=== PATIENT | female | born 1940 | race Caucasian/White ===

== ENCOUNTER → 2020-07-26 | Outpatient (CLI) | payer MEDICARE ==
[~2020-07-26] VITALS: Ht 149.9 cm; Wt 56.4 kg
[~2020-07-26] MED LIST: ASPIRIN E.C. 8181 MG PO; COMPLETE SENIOR1 TA1 PO; CRESTOR 10MG10 MG PO; HYZAAR 50-12.1 UDTAB PO; IMDUR 30MG30 MG/TAB PO; NEXIUM 20MG20 MG; NORVASC 5MG5 MG/TAB PO; VITAMIN D31000 I1 PO; ZETIA 10MG TAB10 MG PO
[2020-07-26 15:24] VITALS: BP 122/75; PULSE 80; TEMP 97.6
== END ==
LOC: EUO 14:53
DX: M81.0 Age-related osteoporosis without current pathological fracture (principal)
CPT/HCPCS: J3489

== ENCOUNTER → 2021-02-22 | Outpatient (CLI) | payer MEDICARE ==
[2021-02-22 11:06] LABS: BASO # 0.1 (0.0-0.2); BASO % 0.9 % (0.0-2.0); EOS # 0.4 (0.0-0.7); EOS % 3.8 % (0-4.0); GRAN # 5.7 (1.4-6.5); GRAN % 60.9 % (42.2-75.2); HEMATOCRIT 38.8 % (37.0-47.0); HEMOGLOBIN 12.3 g/dl (12.5-16.0); LYMPH # 2.2 (1.2-3.4); MEAN CELL VOLUME 90 fl (80.0-100.0); MEAN CORPUSCULAR HEMOGLOBIN 29 pg (27.0-31.0); MEAN CORPUSCULAR HGB CONC 32 g/dl (33.0-37.0); MEAN PLATELET VOLUME 8.4 fl (7.4-10.4); MONO # 1.1 (0.1-0.6); MONO % 11.2 % (1.7-9.3); PLATELET COUNT 384 K/mm3 (130-400); RED BLOOD COUNT 4.32 M/mm3 (4.10-5.30); REDCELL DISTRIBUTION WIDTH-CV 13.4 % (11.5-14.5)
[2021-02-22 11:29] LABS: ALBUMIN 4.6 gm/dL (3.5-5.0); BILIRUBIN,TOTAL 0.4 mg/dL (0.0-1.0); CREATININE, serum 0.59 (0.52-1.25); POTASSIUM 4.1 mmol/L (3.4-5.0); TOTAL PROTEIN 8.8 gm/dL (6.4-8.2)
[2021-02-22 11:59] LABS: C-REACTIVE PROTEIN 1.1 mg/dL (0.0-0.9)
== END ==
LOC: COL.LAB 10:36
PROVIDERS: Family Medicine
DX: R06.00 Dyspnea, unspecified (principal); I10 Essential (primary) hypertension

== ENCOUNTER → 2021-03-20 | Outpatient (CLI) | payer MEDICARE | LOC: COL.PUL 11:12 | DX: J84.10 Pulmonary fibrosis, unspecified (principal); Z87.891 Personal history of nicotine dependence ==

== ENCOUNTER → 2021-06-03 | Outpatient (CLI) | payer MEDICARE | LOC: COL.RAD 10:43 | DX: M31.30 Wegener's granulomatosis without renal involvement (principal); R91.8 Other nonspecific abnormal finding of lung field ==

== ENCOUNTER → 2021-06-05 | Outpatient (CLI) | payer MEDICARE | LOC: COL.PUL 07:48 | DX: M31.30 Wegener's granulomatosis without renal involvement (principal); M30.0 Polyarteritis nodosa ==